=== PATIENT | male | born 1960 ===

== ENCOUNTER 2020-04-24 02:32 | Emergency (ER) | payer OTHER ==
[2020-04-24 02:44] VITALS: BP 152/85; PULSE 77; RESP 18; TEMP 98.1
[2020-04-24] MEDS ORDERED: LIDOCAINE 1% INJ 10MG/ML (20 ML MDV) SQ ONE (03:03)
[2020-04-24] MEDS ORDERED: BUPIVACAINE (PF) 0.25% 30 ML VIAL SQ STA (03:03)
[2020-04-24] MEDS ORDERED: PENICILLIN VK 500MG STARTER 4 TAB BTL PO STA (03:04)
--- NOTE | 2020-04-24 03:05 | ED ---
ENT HPI - General Chief complaint: Dental/Oral Stated complaint: Jaw/Dental Pain Time Seen by Provider: 04/24/20 02:45 Source: patient Mode of arrival: ambulatory Limitations: no limitations - History of Present Illness Initial comments: Feroz is a very pleasant previously healthy 59-year-old male who presents the emergency department today for evaluation of pain in his left molars. Patient reports the pain began yesterday him a he has tried Tylenol and Motrin no improvement. He is a plan for follow-up with a dentist tomorrow however was unable to sleep tonight so he came to ER for evaluation. Patient has regular dental follow-up no history of significant caries or dental injuries. Denies associated fevers chills nausea or vomiting. - Related Data Previous Rx's Medication Instructions Recorded Penicillin V Potassium [Pen Vee K] 500 mg PO Q6H #28 tablet 04/24/20 Allergies Allergy/AdvReac Type Severity Reaction Status Date / Time No Known Allergies Allergy Verified 04/24/20 02:44 Review of Systems ROS Statement: Those systems with pertinent positive or pertinent negative responses have been documented in the HPI. ROS Other: All systems not noted in ROS Statement are negative. Past Medical History Past Medical History: No Reported History History of Any Multi-Drug Resistant Organisms: None Reported Past Surgical History: Heart Catheterization With Stent Past Psychological History: No Psychological Hx Reported Smoking Status: Current every day smoker Past Alcohol Use History: None Reported Past Drug Use History: None Reported General Exam - General Exam Comments Initial Comments: Physical Exam GENERAL: Patient is well-developed and well-nourished. Patient is nontoxic and well-hydrated and is in no distress. HENT: Normocephalic, Atraumatic. Appears to be a dental infection around the base of teeth #18 and 19, no palpable abscess EYES: PERRL, EOMI PULMONARY: Unlabored respirations. CARDIOVASCULAR: RRR Warm and well perfused extremities ABDOMEN: Non-distended SKIN: No rashes or bruising : Deferred NEUROLOGIC: Alert and oriented Normal speech Normal gait MUSCULOSKELETAL: Moving all extremities with no apparent injury PSYCHIATRIC: No SI/HI Limitations: no limitations Course Vital Signs 04/24/20 02:40 Temperature 98.1 F Pulse Rate 77 Respiratory 18 Rate Blood Pressure 152/85 O2 Sat by Pulse 99 Oximetry Procedures - Nerve Block Consent Obtained: verbal consent Local Anesthetic Used: Marcaine 0.25% Amount of anesthesia used: 2 Side: left Intraoral Nerve Block: inferior alveolar Procedure Successful: Yes Complications: none Patient Tolerated Procedure: well, no complications Medical Decision Making - Medical Decision Making Patient was seen and evaluated history is obtained from patient physical exam does reveal a dental infection with no signs of drainable abscess Oral antibiotics will be started in the emergency department Risks and benefits of dental block were discussed patient like to proceed with digital block, inferior alveolar dental block was performed with good success patient had resolution of his pain was comfortable with discharge home. Patient plans to see a dentist here in [place] tomorrow but will be flying home to [place] night and can see his primary dentist on Wednesday as well. Disposition Clinical Impression: Toothache Disposition: HOME SELF-CARE Condition: Stable Instructions (If sedation given, give patient instructions): Toothache (ED) Additional Instructions: Please follow up with the [facility]. [address] [place] [address]. Phone number for new patients or [phone] for existing patients. [facility]. Must pay for x-rays then services are free. Call for an appoitnment. Prescriptions: Penicillin V Potassium [Pen Vee K] 500 mg PO Q6H #28 tablet Is patient prescribed a controlled substance at d/c from ED?: No Referrals: Nonstaff,Physician [Primary Care Provider] - 1-2 days
== END 2020-04-24 03:36 | disposition home or self-care (01) ==
LOC: EC 02:32
DX: K08.89 Other specified disorders of teeth and supporting structures (principal); R68.84 Jaw pain; F17.200 Nicotine dependence, unspecified, uncomplicated; Z95.5 Presence of coronary angioplasty implant and graft
CPT/HCPCS: 99283; 64400; J2001

== ENCOUNTER 2024-05-24 09:09 | Emergency (ER) | payer OTHER | END 2024-05-24 13:18 | disposition home or self-care (01) | LOC: EC 09:09 | DX: I10 Essential (primary) hypertension (principal) | CPT/HCPCS: 99284 ==